=== PATIENT | female | born 1985 | race Caucasian/White ===

== ENCOUNTER 2018-03-11 07:41 | Inpatient (IN) | payer MEDICAID ==
[2018-03-11] MEDS ORDERED: METHYLERGONOVINE 0.2 MG INJ IM ×2 (08:00→13:30)
[2018-03-11] MEDS ORDERED: CARBOPROST 250 MCG INJ IM ×2 (08:00→13:30)
[2018-03-11] MEDS ORDERED: MISOPROSTOL 200 MCG TAB PR (08:00)
[2018-03-11] MEDS ORDERED: OXYTOCIN 30 UNITS/LR 500 ML IV ×2 (08:00→13:30)
[2018-03-11] MEDS: LACTATED RINGER'S 1,000 ML IV ×3 (08:18→20:57)
[2018-03-11 08:32] LABS: ADD MAN DIFF? NO
[2018-03-11 09:14] LABS: INR 0.94; PROTIME 12.7 Sec (11.9-14.9)
[2018-03-11 09:15] LABS: PARTIAL THROMBOPLASTIN TIME 28.8 Sec (25.0-35.0)
[2018-03-11 09:25] LABS: BASOPHILS % 0.6 % (0.0-2.0); EOSINOPHILS # 0.1 10^3/ul (0.0-0.5); EOSINOPHILS % 1.4 % (0.0-7.0); HEMATOCRIT 36.9 % (37.0-47.0); HEMOGLOBIN 12.3 g/dl (12.0-16.0); LYMPHOCYTES # 2.2 10^3/ul (0.8-2.9); LYMPHOCYTES % 34.5 % (15.0-51.0); MEAN CORPUSCULAR HEMOGLOBIN 28.3 pg (29.0-33.0); MEAN CORPUSCULAR HGB CONC 33.3 g/dl (32.0-37.0); MEAN CORPUSCULAR VOLUME 84.8 fl (82.0-101.0); MEAN PLATELET VOLUME 9.3 fl (7.4-10.4); MONOCYTE # 0.5 10^3/ul (0.3-0.9); MONOCYTES % 8.2 % (0.0-11.0); NEUTROPHIL # 3.5 10^3/ul (1.6-7.5); NEUTROPHILS % 54.2 % (39.0-77.0); PLATELET COUNT 246 10^3/UL (140-415); RED BLOOD COUNT 4.35 10^6/ul (4.20-5.40); RED CELL DISTRIBUTION WIDTH 14.3 % (11.5-14.5)
[2018-03-11 09:25] LABS: WHITE BLOOD COUNT 6.5 10^3/ul (4.8-10.8)
[2018-03-11] MEDS ORDERED: BUPIVACAINE 0.75%/DEXT (SPINAL) 2 ML INJ (09:26)
[2018-03-11 09:28] LABS: HEPATITIS B SURFACE ANTIGEN NEGATIVE (NEGATIVE)
[2018-03-11] MEDS ORDERED: morphine SULFATE/PF (10 MG/10 ML) INJ (09:28)
[2018-03-11] MEDS ORDERED: FENTAnyl 50 MCG/ML VIAL (09:28)
[2018-03-11] MEDS ORDERED: PHENYLephrine (100 MCG/ML) 5ML SYG (11:37)
[2018-03-11] MEDS ORDERED: ONDANSETRON 4 MG INJ (11:43)
[2018-03-11] MEDS ORDERED: DEXAMETHASONE 4 MG/ML 1 ML INJ (11:43)
[2018-03-11] MEDS: MISOPROSTOL 200 MCG TAB PR (13:23)
[2018-03-11] MEDS: OXYTOCIN 30 UNITS/LR 500 ML IV ×2 (13:26→15:09)
[2018-03-11] MEDS ORDERED: HYDROmorphONE 0.5 MG/0.5 ML SYG IV ×2 (13:30)
[2018-03-11] MEDS ORDERED: METHYLERGONOVINE 0.2 MG TAB PO (13:30)
[2018-03-11] MEDS ORDERED: OXYCODONE/ACETAMINOPHEN (5/325) TAB PO ×2 (13:30)
[2018-03-11] MEDS ORDERED: DIPHENHYDRAMINE 50 MG INJ IV (13:30)
[2018-03-11] MEDS ORDERED: LANOLIN 7 GM TUBE TOP (13:30)
[2018-03-11] MEDS ORDERED: ONDANSETRON 4 MG INJ IV (13:30)
[2018-03-11] MEDS ORDERED: ZOLPIDEM 5 MG TAB PO (13:30)
[2018-03-11] MEDS ORDERED: NALOXONE (0.4 MG/ML) INJ IV (13:30)
[2018-03-11 14:54] LABS: RAPID PLASMA REAGIN NONREACTIVE (NR)
[2018-03-11] MEDS: DEXTROSE 5%-LR 1,000 ML IV ×2 (16:21→21:08)
[2018-03-11] MEDS: IBUPROFEN 800 MG TAB PO ×2 (16:22→22:00)
[2018-03-11] MEDS: SENNA/DOCUSATE NA (8.6MG/50MG) TAB PO (20:59)
[2018-03-12] MEDS: DEXTROSE 5%-LR 1,000 ML IV ×2 (05:08→13:08)
[2018-03-12] MEDS: KETOROLAC 30 MG INJ IV (05:10)
[2018-03-12] MEDS: LACTATED RINGER'S 1,000 ML IV ×2 (05:10→12:23)
[2018-03-12] MEDS: IBUPROFEN 800 MG TAB PO ×3 (06:00→21:21)
[2018-03-12] MEDS: CEFAZOLIN 2 GM/50 ML (PMX) 50 ML IV (06:06)
[2018-03-12 06:51] LABS: ADD MAN DIFF? NO
[2018-03-12 06:56] LABS: BASOPHILS % 0.1 % (0.0-2.0); EOSINOPHILS % 0.1 % (0.0-7.0); HEMATOCRIT 34.7 % (37.0-47.0); HEMOGLOBIN 11.5 g/dl (12.0-16.0); LYMPHOCYTES # 2.3 10^3/ul (0.8-2.9); LYMPHOCYTES % 16.5 % (15.0-51.0); MEAN CORPUSCULAR HEMOGLOBIN 28.5 pg (29.0-33.0); MEAN CORPUSCULAR HGB CONC 33.1 g/dl (32.0-37.0); MEAN CORPUSCULAR VOLUME 86.1 fl (82.0-101.0); MEAN PLATELET VOLUME 9.3 fl (7.4-10.4); MONOCYTE # 1.2 10^3/ul (0.3-0.9); MONOCYTES % 8.5 % (0.0-11.0); NEUTROPHIL # 10.4 10^3/ul (1.6-7.5); NEUTROPHILS % 74.1 % (39.0-77.0); PLATELET COUNT 215 10^3/UL (140-415); RED BLOOD COUNT 4.03 10^6/ul (4.20-5.40); RED CELL DISTRIBUTION WIDTH 14.8 % (11.5-14.5)
[2018-03-12] MEDS: SENNA/DOCUSATE NA (8.6MG/50MG) TAB PO ×2 (09:00→21:21)
[2018-03-12] MEDS: LACTATED RINGER'S 500 ML IV (12:30)
[2018-03-12] MEDS: LACTATED RINGER'S 800 ML IV (12:30)
[2018-03-13] MEDS: IBUPROFEN 800 MG TAB PO ×3 (05:37→21:37)
[2018-03-13] MEDS: SENNA/DOCUSATE NA (8.6MG/50MG) TAB PO ×2 (09:28→21:37)
[2018-03-14] MEDS: IBUPROFEN 800 MG TAB PO ×2 (05:51→14:09)
[2018-03-14] MEDS: DIPHTH/TET/ACEL PERTUSS (ADULT) 0.5 ML VIAL IM* (08:53)
[2018-03-14] MEDS: SENNA/DOCUSATE NA (8.6MG/50MG) TAB PO (08:54)
[2018-03-14] MEDS: MEASLES,MUMPS,RUBELLA VACCINE INJ SC* (08:54)
== END 2018-03-14 18:14 | disposition home or self-care (01) | DRG 766 ==
LOC: L-D 07:41 → PP1 15:50
PROVIDERS: Obstetrics & Gynecology
PROC: 10D00Z1 Extraction of Products of Conception, Low, Open Approach (ICD-10-PCS; principal; 2018-03-11 09:30)
PROC: 3E033VJ Introduction of Other Hormone into Peripheral Vein, Percutaneous Approach (ICD-10-PCS; 2018-03-11 09:30)
DX: O34.211 Maternal care for low transverse scar from previous cesarean delivery (principal); O34.83 Maternal care for other abnormalities of pelvic organs, third trimester; Z3A.39 39 weeks gestation of pregnancy; Z37.0 Single live birth
CPT/HCPCS: 85025; 85610; 85730; 86592; 86850; 86900; 86901; 87340; 94760; 99464